=== PATIENT | female | born 1950 | race Caucasian/White ===

== ENCOUNTER 2023-11-17 11:55 | Inpatient (IN) | payer MEDICARE ==
[~2023-11-17 11:55] MED LIST: Iopamidol-370 76% 500 ML MDV (1 ML CHARGE) ONE
[2023-11-17 12:45] LABS: #Basophils Less than 0.03 10x3/uL (0.0-0.2); %Basophils 0.2 % (0.0-1.0); %Lymphocytes 20.1 % (21.0-51.0); %Monocytes 11.1 % (0.0-10.0); %Neutrophils 66.4 % (42.0-75.0); Hemoglobin 10.4 g/dL (12.0-16.0); Mean Corpuscular HGB CONC 32.5 g/dL (32.0-36.0); Mean Corpuscular Hemoglobin 26.9 pg (27.0-31.0); Mean Corpuscular Volume 82.7 fL (78.0-98.0); Mean Platelet Volume 10.3 fL (7.4-10.4); Platelet Count 353 10x3/uL (130-400); RBC Distribution Width 13.3 % (11.5-14.5); Red Blood Cell (RBC) Count 3.87 mill/uL (4.20-5.40)
[2023-11-17 13:03] LABS: Troponin I 0.015 ng/mL (< 0.028)
[2023-11-17 13:06] LABS: ALT (SGPT) 7 U/L (8-55); AST (SGOT) 13 U/L (5-34); Albumin 2.6 g/dL (3.4-4.8); Alkaline Phosphatase 95 U/L (40-110); Anion Gap 13 mmol/L (10-20); BUN (Urea Nitrogen) 9 mg/dL (9.8-20.1); Bilirubin, Total 0.7 mg/dL (0.2-1.2); CK (CPK) 11 U/L (29-168); Calc. Creatinine Clearance 0 mL/min (70-130); Calcium 9.5 mg/dL (7.8-10.44); Carbon Dioxide 24 mmol/L (23-31); Chloride 107 mmol/L (98-107); Estimated GFR 101; Globulin 2.9 g/dL (2.4-3.5); Glucose 94 mg/dL (83-110); Magnesium 1.4 mg/dL (1.6-2.6); Potassium 3.9 mmol/L (3.5-5.1); Protein, Total 5.5 g/dL (5.8-8.1); Sodium 140 mmol/L (136-145)
[2023-11-17] MEDS ORDERED: Magnesium 2 GM/50 ML BAG (IN WATER) ONE (15:02)
[2023-11-17 17:05] LABS: Bacteria/HPF None Seen HPF (None Seen); Bilirubin Negative (Negative); Blood, Urine Negative (Negative); CAUTI Indications for Culture Dysuria,urgency,freq; Clarity Clear (Clear); Glucose, Urine (Dipstick) Normal (Negative); Ketone, Urine Negative (Negative); Leukocyte Negative Leu/uL (Negative); Nitrite Negative (Negative); Protein, Urine (Dipstick) Negative (Neg-Trace); RBC/HPF 0-3 HPF (0-3); Specific Gravity, Urine 1.009 (1.002-1.036); Squamous Epithelial 0-3 HPF (0-3); Urobilinogen Normal mg/dL (Less than 2)
[2023-11-17 17:20] LABS: Urine Culture Reflex No No
[2023-11-17] MEDS ORDERED: Acetaminophen 650 MG Suppository PR PRN (19:05)
[2023-11-17] MEDS ORDERED: Loperamide HCl 2 MG CAP PO PRN (19:05)
[2023-11-17] MEDS ORDERED: Ondansetron ODT 4 MG TAB PO PRN (19:05)
[2023-11-17] MEDS ORDERED: Senokot S 8.6-50 MG TAB PO PRN (19:05)
[2023-11-17] MEDS ORDERED: Acetaminophen 325 MG TAB PO PRN (19:05)
[2023-11-17] MEDS ORDERED: Electrolyte Replacement Protocol 1 EACH FS SCH (19:15)
[2023-11-17] MEDS ORDERED: Electrolyte Replacement Protocol FS PRN (19:15)
[2023-11-17 20:09] LABS: Troponin I 0.025 ng/mL (< 0.028)
[2023-11-17] MEDS ORDERED: Nitroglycerin 0.4 MG TAB (25 Tab Bottle) SL PRN (20:44)
[2023-11-17] MEDS: Famotidine 20 MG TAB PO SCH (21:25)
[2023-11-17] MEDS: Aspirin Chewable 81 MG TAB PO SCH (21:25)
[2023-11-17] MEDS: Sodium Chloride 0.9% 1,000 ML IV SCH (21:26)
[2023-11-17] MEDS: Magnesium 2 GM/50 ML(in water) 2 GM in Premix 1 BAG IVPB SCH (21:27)
[2023-11-17 22:12] VITALS: BMI 23.3
[2023-11-17] MEDS: HYDROcodone/Acetaminophen 5/325 mg Tablet PO PRN (22:29)
[2023-11-17] MEDS: Hydrocortisone 1% Cream 30 GM TUBE TOP SCH (22:30)
[2023-11-17 22:47] LABS: Troponin I 0.011 ng/mL (< 0.028)
[2023-11-17 22:52] LABS: Magnesium 1.7 mg/dL (1.6-2.6)
[2023-11-18 04:57] LABS: #Basophils Less than 0.03 10x3/uL (0.0-0.2); %Basophils 0.2 % (0.0-1.0); %Eosinophils 3.5 % (0.0-10.0); %Lymphocytes 28.1 % (21.0-51.0); %Monocytes 13.1 % (0.0-10.0); %Neutrophils 54.7 % (42.0-75.0); Hematocrit 30.6 % (36.0-47.0); Hemoglobin 9.6 g/dL (12.0-16.0); Mean Corpuscular HGB CONC 31.4 g/dL (32.0-36.0); Mean Corpuscular Hemoglobin 26.5 pg (27.0-31.0); Mean Corpuscular Volume 84.5 fL (78.0-98.0); Mean Platelet Volume 9.9 fL (7.4-10.4); Platelet Count 300 10x3/uL (130-400); RBC Distribution Width 13.3 % (11.5-14.5); Red Blood Cell (RBC) Count 3.62 mill/uL (4.20-5.40)
[2023-11-18 05:19] LABS: Hemoglobin A1c 5.5 % (4.0-6.0)
[2023-11-18 05:28] LABS: Magnesium 2.1 mg/dL (1.6-2.6)
[2023-11-18 05:31] LABS: Anion Gap 11 mmol/L (10-20); BUN (Urea Nitrogen) 7 mg/dL (9.8-20.1); Calc. Creatinine Clearance 110 mL/min (70-130); Calcium 8.8 mg/dL (7.8-10.44); Carbon Dioxide 27 mmol/L (23-31); Cardiac Risk 4.4 (Less than 4.5); Chloride 108 mmol/L (98-107); Cholesterol 102 mg/dl (< 200 Desired); Estimated GFR 102; Glucose 84 mg/dL (83-110); HDL Cholesterol 23 mg/dL (>60 Neg Risk); LDL Cholesterol, Calculated 60 mg/dL; Potassium 4.1 mmol/L (3.5-5.1); Sodium 142 mmol/L (136-145); Triglycerides 96 mg/dL (Less than 150)
[2023-11-18] MEDS ORDERED: Metoprolol Tartrate 50 MG TAB PO SCH (09:00)
[2023-11-18] MEDS: Magnesium Sulfate In Water 4 GM in Premix 1 BAG IVPB SCH (10:03)
[2023-11-18] MEDS: Enoxaparin 40 MG (0.4 mL) SYRINGE SC SCH (10:03)
[2023-11-18] MEDS: Aspirin Chewable 81 MG TAB PO SCH (10:05)
[2023-11-18] MEDS: Metoprolol Tartrate 5 MG (5 mL) VIAL IVP SCH (10:06)
[2023-11-18 10:26] LABS: Iron 34 ug/dL (50-170); Iron Binding Capacity, Total 201 mcg/dL (265-497)
[2023-11-18] MEDS: Magnesium Sulfate 4 GM in Sodium Chloride 0.9% 250 ML 250 ML IVPB SCH (10:34)
[2023-11-18 11:31] LABS: Ferritin 96.71 ng/mL (10-291); T4 15.56 ug/dL (4.87-11.72)
[2023-11-18 12:45] LABS: Thyroid Stimulating Hormone Less than 0.0083 uIU/mL (0.35-4.94)
[2023-11-18] MEDS: Sodium Ferric Gluconate 250 MG in Sodium Chloride 0.9% 250 ML 250 ML IVPB SCH (12:45)
[2023-11-18] MEDS ORDERED: Docusate 100 MG CAP PO PRN (12:52)
[2023-11-18] MEDS ORDERED: clonazePAM 1 MG TAB PO PRN (12:58)
[2023-11-18] MEDS: metFORMIN 500 MG TAB PO SCH (16:56)
[2023-11-18] MEDS ORDERED: Morphine 4 MG/ML VIAL SLOW IVP PRN (17:34)
[2023-11-18] MEDS: Morphine 4 MG/ML VIAL SLOW IVP SCH (17:46)
[2023-11-18 18:07] VITALS: BMI 23.3
[2023-11-18 18:55] LABS: Troponin I 0.018 ng/mL (< 0.028)
[2023-11-18] MEDS: Ketorolac Tromethamine 30 MG (1 mL) VIAL IVP SCH (19:57)
[2023-11-18] MEDS: Gabapentin 300 MG CAP PO SCH (19:58)
[2023-11-18] MEDS: DULoxetine 60 MG CAP PO SCH (19:58)
[2023-11-18] MEDS: traZODone HCl 50 MG TAB PO SCH (19:58)
[2023-11-18] MEDS: Oxybutynin 5 MG TAB PO SCH (19:58)
[2023-11-19 05:04] LABS: #Basophils Less than 0.03 10x3/uL (0.0-0.2); %Basophils 0.3 % (0.0-1.0); %Eosinophils 4.5 % (0.0-10.0); %Lymphocytes 23.4 % (21.0-51.0); %Monocytes 12.2 % (0.0-10.0); %Neutrophils 59.2 % (42.0-75.0); Hematocrit 30.9 % (36.0-47.0); Hemoglobin 9.8 g/dL (12.0-16.0); Mean Corpuscular HGB CONC 31.7 g/dL (32.0-36.0); Mean Corpuscular Hemoglobin 27.7 pg (27.0-31.0); Mean Corpuscular Volume 87.3 fL (78.0-98.0); Mean Platelet Volume 10.1 fL (7.4-10.4); Platelet Count 316 10x3/uL (130-400); RBC Distribution Width 13.4 % (11.5-14.5); Red Blood Cell (RBC) Count 3.54 mill/uL (4.20-5.40)
[2023-11-19 05:27] LABS: Anion Gap 14 mmol/L (10-20); BUN (Urea Nitrogen) 12 mg/dL (9.8-20.1); Calc. Creatinine Clearance 99 mL/min (70-130); Calcium 9.2 mg/dL (7.8-10.44); Carbon Dioxide 23 mmol/L (23-31); Chloride 110 mmol/L (98-107); Estimated GFR 100; Glucose 100 mg/dL (83-110); Potassium 4.7 mmol/L (3.5-5.1); Sodium 142 mmol/L (136-145)
[2023-11-19 05:42] LABS: Free T4 (Free Thyroxine) 2.09 ng/dL (0.70-1.48)
[2023-11-19] MEDS ORDERED: Methimazole 5 MG TAB PO SCH (09:00)
[2023-11-19] MEDS: Magnesium 2 GM/50 ML(in water) 2 GM in Premix 1 BAG IVPB SCH (09:03)
[2023-11-19] MEDS: Floranex 1 GM Packet PO SCH (09:11)
[2023-11-19] MEDS: Methimazole 10 MG TAB PO SCH (09:13)
[2023-11-19] MEDS: Sodium Ferric Gluconate 250 MG in Sodium Chloride 0.9% 250 ML 250 ML IVPB SCH (10:50)
[2023-11-19] MEDS: Ondansetron PF 4 MG/2 ML Vial IVP PRN (11:07)
[2023-11-19] MEDS ORDERED: Dextrose 5% in Water 1,000 ML IV PRN (12:15)
[2023-11-19] MEDS ORDERED: Glucagon 1 MG/ML KIT IM PRN (12:15)
[2023-11-19] MEDS ORDERED: HumaLOG 300 UNITS/3 ML VIAL SC PRN (12:15)
[2023-11-19] MEDS ORDERED: Dextrose 50% Abboject 50 ML SYRINGE SLOW IVP PRN (12:15)
[2023-11-20] MEDS: Gabapentin 300 MG CAP PO SCH (09:55)
[2023-11-20] MEDS: Magnesium Sulfate In Water 4 GM in Premix 1 BAG IVPB SCH (09:56)
[2023-11-20] MEDS: hydrOXYzine 25 MG TAB PO PRN (09:59)
[2023-11-20] MEDS: Magnesium Sulfate 4 GM in Sodium Chloride 0.9% 250 ML 250 ML IVPB SCH (11:03)
[2023-11-20] MEDS: Clindamycin 150 MG CAP PO SCH (15:47)
[2023-11-21] MEDS: Saccharomyces boulardii 250 MG CAP PO SCH (10:21)
[2023-11-21 12:43] VITALS: BP 130/89; TEMP 97.9
== END 2023-11-21 13:24 | disposition home health service (06) | DRG 644 ==
LOC: ERS 11:55 → 2SW 18:28 → OBSVTOIN 11-19 10:56
PROVIDERS: ADMIT Internal Medicine; ATTEND Family Medicine
DX: E05.00 Thyrotoxicosis with diffuse goiter without thyrotoxic crisis or storm (principal); E44.0 Moderate protein-calorie malnutrition; L03.116 Cellulitis of left lower limb; L03.115 Cellulitis of right lower limb; I48.0 Paroxysmal atrial fibrillation; E83.42 Hypomagnesemia; L98.499 Non-pressure chronic ulcer of skin of other sites with unspecified severity; Z79.899 Other long term (current) drug therapy; M06.9 Rheumatoid arthritis, unspecified; Z98.890 Other specified postprocedural states; Z82.49 Family history of ischemic heart disease and other diseases of the circulatory system; M17.11 Unilateral primary osteoarthritis, right knee
CPT/HCPCS: 36415; 36416; 71045; 71275; 74177; 80048; 80053; 80061; 81001; 82550; 82728; 83036; 83540; 83550; 83735; 83880; 84100; 84436; 84439; 84443; 84479; 84481; 84484; 85025; 93005; 93010; 93306; 96361; 96365; 96372; 96375; 96376; 97139; G0378; J1650; J1885; J2270; J2405; J2916; J3475; J7050; Q9967

== ENCOUNTER 2024-03-08 10:27 | Emergency (ER) | payer MEDICARE ==
[2024-03-08 10:54] LABS: #Basophils Less than 0.03 10x3/uL (0.0-0.2); %Basophils 0.2 % (0.0-1.0); %Eosinophils 0.9 % (0.0-10.0); %Lymphocytes 7.1 % (21.0-51.0); %Monocytes 6.4 % (0.0-10.0); %Neutrophils 84.8 % (42.0-75.0); Hematocrit 40.8 % (36.0-47.0); Hemoglobin 12.9 g/dL (12.0-16.0); Mean Corpuscular HGB CONC 31.6 g/dL (32.0-36.0); Mean Corpuscular Hemoglobin 29.5 pg (27.0-31.0); Mean Corpuscular Volume 93.4 fL (78.0-98.0); Mean Platelet Volume 9.8 fL (7.4-10.4); Platelet Count 167 10x3/uL (130-400); RBC Distribution Width 15.3 % (11.5-14.5); Red Blood Cell (RBC) Count 4.37 mill/uL (4.20-5.40)
[2024-03-08 11:07] LABS: INR-International Normal Ratio 1.2; Prothrombin Time 14.7 sec (12.0-14.7)
[2024-03-08 11:08] LABS: PTT 31.5 sec (22.9-36.1)
[2024-03-08 11:13] LABS: ALT (SGPT) 23 U/L (8-55); AST (SGOT) 15 U/L (5-34); Albumin 2.9 g/dL (3.4-4.8); Alkaline Phosphatase 138 U/L (40-110); Anion Gap 11 mmol/L (10-20); BUN (Urea Nitrogen) 14 mg/dL (9.8-20.1); Bilirubin, Total 1.4 mg/dL (0.2-1.2); Calc. Creatinine Clearance 0 mL/min (70-130); Calcium 8.1 mg/dL (7.8-10.44); Carbon Dioxide 25 mmol/L (23-31); Chloride 100 mmol/L (98-107); Estimated GFR 85; Globulin 2.8 g/dL (2.4-3.5); Glucose 148 mg/dL (83-110); Potassium 3.4 mmol/L (3.5-5.1); Protein, Total 5.7 g/dL (5.8-8.1); Sodium 133 mmol/L (136-145)
[2024-03-08 11:39] LABS: Influenza A by NAA Not Detected (NotDetected); Influenza B by NAA Not Detected (NotDetected); SARS-CoV-2 NAA Rapid Test Not Detected (NotDetected)
[2024-03-08 12:02] LABS: Free T4 (Free Thyroxine) 0.9 ng/dL (0.70-1.48); Thyroid Stimulating Hormone 0.6525 uIU/mL (0.35-4.94)
[2024-03-08 13:21] LABS: Bacteria/HPF 4+ HPF (None Seen); Bilirubin Negative (Negative); Blood, Urine 1+ (Negative); CAUTI Indications for Culture Alt mental st,lethar; Clarity Turbid (Clear); Glucose, Urine (Dipstick) Normal (Negative); Ketone, Urine Negative (Negative); Leukocyte 500 Leu/uL (Negative); Nitrite Negative (Negative); Protein, Urine (Dipstick) 30 mg/dL (Neg-Trace); Specific Gravity, Urine 1.011 (1.002-1.036); Squamous Epithelial 0-3 HPF (0-3); Urobilinogen Normal mg/dL (Less than 2); WBC/HPF Greater than 50 HPF (0-3); pH, Urine 5.5 (5.0-9.0)
[2024-03-08 13:22] LABS: Urine Culture Reflex Yes Yes
[2024-03-08] MEDS ORDERED: Potassium Chloride 20 MEQ TAB ONE (15:46)
[2024-03-08] MEDS ORDERED: Ketorolac Tromethamine 30 MG (1 mL) VIAL ONE (15:46)
[2024-03-08] MEDS ORDERED: cefTRIAXone (ROCEPHIN) 2 GM VIAL ONE (15:47)
[2024-03-08] MEDS ORDERED: Sodium Chloride 0.9% 100 ML ONE (15:47)
[2024-03-08] MEDS ORDERED: Magnesium 2 GM/50 ML BAG (IN WATER) ONE (15:47)
== END 2024-03-08 19:00 | disposition home or self-care (01) ==
LOC: ERS 10:27
DX: S09.90XA Unspecified injury of head, initial encounter (principal); N39.0 Urinary tract infection, site not specified; L89.151 Pressure ulcer of sacral region, stage 1; E11.39 Type 2 diabetes mellitus with other diabetic ophthalmic complication; H42 Glaucoma in diseases classified elsewhere; E05.00 Thyrotoxicosis with diffuse goiter without thyrotoxic crisis or storm; M06.9 Rheumatoid arthritis, unspecified; E24.9 Cushing's syndrome, unspecified; J42 Unspecified chronic bronchitis; W18.30XA Fall on same level, unspecified, initial encounter; Y93.89 Activity, other specified; Y92.002 Bathroom of unspecified non-institutional (private) residence as the place of occurrence of the external cause; Z86.73 Personal history of transient ischemic attack (TIA), and cerebral infarction without residual deficits
CPT/HCPCS: 0240U; 70450; 71045; 72125; 81001; 82962; 83605; 84439; 85610; 85730; 87040; 87077; 87086; 87149 ×2; 87186; 93005; 94760; 96361; 96374; 96375; 99285; J0696; J1885; J3475; 36415; 36416; 80053; 84443; 85025

== ENCOUNTER 2024-06-28 22:34 | Emergency (ER) | payer MEDICARE, OTHER | END 2024-06-29 02:36 | disposition home or self-care (01) | LOC: ERS 22:34 | DX: S05.11XA Contusion of eyeball and orbital tissues, right eye, initial encounter (principal); J42 Unspecified chronic bronchitis; E11.42 Type 2 diabetes mellitus with diabetic polyneuropathy; R54 Age-related physical debility; W18.30XA Fall on same level, unspecified, initial encounter; Y92.009 Unspecified place in unspecified non-institutional (private) residence as the place of occurrence of the external cause | CPT/HCPCS: 70450; 70486; 72125 ==